=== PATIENT | female | born 1965 | race Two or more races ===

== ENCOUNTER 2023-12-11 11:06 | Inpatient (IN) | payer OTHER ==
[~2023-12-11] VITALS: Ht 167.6 cm; Wt 90.7 kg
[2023-12-11] MEDS ORDERED: XARELTO20 MG (11:35)
--- NOTE | 2023-12-11 11:37 | NUR ---
PACIENET ALERTA Y ORIENTADA X3. REFIERE VENIR POR REFERIDO DE DR. SARABIA PARA EVALUACION POR ULCERA EN PIERNA IZQUIERDA Y CELULITIS. PACIENTE CON VENDAJES LIMPIOS EN PIERNA IZQUIERDA.
[2023-12-11] MEDS ORDERED: 0.9 % SODIUM CHLORIDE 1,000 ML IV SCH ×2 (12:00→18:15)
[2023-12-11] MEDS ORDERED: MEPERIDINE HCL/PF 50 MG/ML VIAL IM PRN (12:00)
[2023-12-11] MEDS ORDERED: levoFLOXacin IN DEXTROSE 5 % 5 MG/ML PIGGYBAG IV ONE (12:00)
[2023-12-11] MEDS ORDERED: PROMETHAZINE HCL 25 MG/ML AMPUL IM PRN (12:00)
--- NOTE | 2023-12-11 13:10 | NUR ---
SE ORIENTA PTE SOBRE TX A SEGUIR,EL CUAL REFIERE ENTENDER. SE COLECTAN MUESTRAS Y SE CANALIZA PTE UTILIZANDO MEDIDAS ASEPTICAS. SE ADM. MEDICAMENTOS KORINA ORDEN MEDICA. PEND VENOUS DUPLEX.
[2023-12-11 13:45] LABS: HEMATOCRIT 41.7 % (36.0-45.00); HEMOGLOBIN 14.5 g/dL (12.0-15.00); MEAN CELL VOLUME 104.8 fL (80.00-100.00); MEAN CORPUSCULAR HEMOGLOBIN 36.5 pg (27.00-32.0); MEAN CORPUSCULAR HGB CONC 34.8 g/dl (32.0-36.0); PLATELET COUNT 355 K/uL (150-450); RED BLOOD COUNT 3.98 M/uL (4.00-6.00); RED CELL DISTRIBUTION WIDTH 16.3 % (11.5-14.5)
[2023-12-11 14:37] LABS: ALBUMIN 3.7 gm/dL (3.4-5.0); BILIRUBIN TOTAL 0.26 mg/dL (0.3-1.2); CALCIUM 9.9 mg/dL (8.5-10.1); CREATININE SERUM 0.6 mg/dL (0.55-1.02); GFR 101.97; GLOBULINA 4.9 G/DL (2.4-3.5); POTASSIUM 4.58 mEq/L (3.5-5.1); TOTAL PROTEIN 8.6 gm/dL (6.4-8.2)
[2023-12-11 14:49] LABS: C-REACTIVE PROTEIN 0.99 MG/DL (0.00-0.29)
[2023-12-11 14:57] LABS: D DIMER 0.35 MG/L; PARTIAL THROMBOPLASTIN TIME 28.8 SECONDS (22.0-34.0)
[2023-12-11 15:00] LABS: INR 0.99; PROTHROMBIN TIME 10.4 SECONDS (9.0-11.5)
[2023-12-11 15:05] LABS: ERYTHROCYTE SEDIMENTATION RATE 129 mm/hr
--- NOTE | 2023-12-11 15:37 | NUR ---
PTE ALERTA Y ORIENTADA X 3 ESFERAS EN CRIS CON BARANDAS ELEVADAS,SIN FAMILIAR AL MOMENTO DE LA D[place],AREA DE VENOPUNCION PATENTE Y AMANDA DE EDEMA,PENDIENTE A EVALUACION DE .
[2023-12-11] MEDS ORDERED: MORPHINE SULFATE 4 MG/ML CARTRIDGE IV ONE (17:15)
[2023-12-11] MEDS ORDERED: PIPERACILLIN/TAZOBACTAM SODIUM 3.375 GM in 0.9 % SODIUM CHLORIDE 100 ML IV SCH (18:19)
[2023-12-11] MEDS ORDERED: ONDANSETRON HCL 4 MG in 0.9 % SODIUM CHLORIDE 50 ML IV PRN (18:30)
[2023-12-11] MEDS ORDERED: ACETAMINOPHEN 500 MG GEL..CAP PO PRN (18:30)
[2023-12-11] MEDS ORDERED: MEPERIDINE HCL/PF 25 MG/ML VIAL IM PRN (18:30)
[2023-12-12] MEDS ORDERED: KETOROLAC TROMETHAMINE 30 MG VIAL IV PRN (01:30)
[2023-12-12 06:43] LABS: URINE APPEARANCE Error; URINE BILIRRUBIN Negative (NEGATIVE); URINE BLOOD Negative; URINE COLOR Yellow; URINE GLUCOSE Negative (NEGATIVE); URINE LEUKOCYTE Negative; URINE NITRATE Negative; URINE PROTEIN Trace (NEGATIVE); URINE UROBILINOGEN 0.2 E.U./dl
[2023-12-12 06:48] LABS: URINE BACTERIA 47.8 uL (0.0-1933); URINE EPITHELIAL CELLS 11.7 uL (0.0-38.8); URINE RBC 11.6 uL (0.0-20.8); URINE WBC 13.7 uL (0.0-23.2)
[2023-12-12] MEDS ORDERED: FAMOTIDINE/PF 20 MG in 0.9 % SODIUM CHLORIDE 8 ML IV PUSH SCH (09:00)
[2023-12-12] MEDS ORDERED: RIVAROXABAN 20 MG TABLET PO SCH (09:00)
[2023-12-12 09:41] LABS: URINE CRYSTALS FEW /HPF
[2023-12-12] MEDS ORDERED: GABAPENTIN 100 MG CAPSULE PO SCH (11:39)
[2023-12-12] MEDS ORDERED: VANCOMYCIN HCL 1,000 MG in 0.9 % SODIUM CHLORIDE 250 ML IV SCH (17:00)
[2023-12-13 06:34] LABS: HEMATOCRIT 33.2 % (36.0-45.00); MEAN CORPUSCULAR HGB CONC 34.5 g/dl (32.0-36.0); PLATELET COUNT 246 K/uL (150-450); RED CELL DISTRIBUTION WIDTH 16.7 % (11.5-14.5)
[2023-12-13 06:45] LABS: HEMOGLOBIN 11.4 g/dL (12.0-15.00); MEAN CELL VOLUME 103.8 fL (80.00-100.00); MEAN CORPUSCULAR HEMOGLOBIN 35.6 pg (27.00-32.0)
[2023-12-13 07:04] LABS: ALBUMIN 2.8 gm/dL (3.4-5.0); BILIRUBIN TOTAL 0.27 mg/dL (0.3-1.2); C-REACTIVE PROTEIN 1.46 MG/DL (0.00-0.29); CALCIUM 8.4 mg/dL (8.5-10.1); CREATININE SERUM 0.42 mg/dL (0.55-1.02); GFR 153.9; GLOBULINA 3.3 G/DL (2.4-3.5); POTASSIUM 4.24 mEq/L (3.5-5.1); TOTAL PROTEIN 6.1 gm/dL (6.4-8.2)
[2023-12-13] MEDS ORDERED: BENZONATATE 100 MG CAPSULE PO SCH (17:00)
[2023-12-13] MEDS ORDERED: CEFAZOLIN SODIUM 2,000 MG in 0.9 % SODIUM CHLORIDE 100 ML IV SCH (17:00)
[2023-12-13] MEDS ORDERED: FAMOTIDINE/PF 20 MG in 0.9 % SODIUM CHLORIDE 8 ML IV PUSH SCH (17:00)
[2023-12-13] MEDS ORDERED: MEPERIDINE HCL/PF 25 MG/ML VIAL IM PRN (20:00)
[2023-12-13] MEDS ORDERED: FLUTICASONE PROPIONATE 50 MCG SPRAY NASAL SCH (21:00)
[2023-12-13] MEDS ORDERED: LORATADINE 10 MG TABLET PO SCH (21:00)
[2023-12-16 07:30] LABS: HEMATOCRIT 34.9 % (36.0-45.00); HEMOGLOBIN 12.1 g/dL (12.0-15.00); MEAN CELL VOLUME 103.2 fL (80.00-100.00); MEAN CORPUSCULAR HEMOGLOBIN 35.8 pg (27.00-32.0); MEAN CORPUSCULAR HGB CONC 34.7 g/dl (32.0-36.0); PLATELET COUNT 225 K/uL (150-450); RED BLOOD COUNT 3.38 M/uL (4.00-6.00); RED CELL DISTRIBUTION WIDTH 15.6 % (11.5-14.5)
[2023-12-16 07:45] LABS: ALBUMIN 2.8 gm/dL (3.4-5.0); BILIRUBIN TOTAL 0.25 mg/dL (0.3-1.2); CALCIUM 8.7 mg/dL (8.5-10.1); CREATININE SERUM 0.41 mg/dL (0.55-1.02); GFR 158.24; GLOBULINA 3.3 G/DL (2.4-3.5); POTASSIUM 4.11 mEq/L (3.5-5.1); TOTAL PROTEIN 6.1 gm/dL (6.4-8.2)
[2023-12-16 07:48] LABS: ERYTHROCYTE SEDIMENTATION RATE 75 mm/hr
[2023-12-16] MEDS ORDERED: FAMOtidine 20 MG TABLET PO SCH (21:00)
== END 2023-12-20 22:00 | disposition home or self-care (01) | DRG 982 ==
LOC: ER 11:07 → MEDI 18:59
PROVIDERS: General Practice; Internal Medicine Infectious Disease; ADMIT Internal Medicine; ATTEND Internal Medicine
PROC: B54CZZZ Ultrasonography of Left Lower Extremity Veins (ICD-10-PCS; 2023-12-11)
PROC: 0JDP0ZZ Extraction of Left Lower Leg Subcutaneous Tissue and Fascia, Open Approach (ICD-10-PCS; principal; 2023-12-12)
PROC: 02HV33Z Insertion of Infusion Device into Superior Vena Cava, Percutaneous Approach (ICD-10-PCS; 2023-12-12)
PROC: 0JDP0ZZ Extraction of Left Lower Leg Subcutaneous Tissue and Fascia, Open Approach (ICD-10-PCS; 2023-12-18)
DX: I83.028 Varicose veins of left lower extremity with ulcer other part of lower leg (principal); L03.116 Cellulitis of left lower limb; L97.923 Non-pressure chronic ulcer of unspecified part of left lower leg with necrosis of muscle; B95.61 Methicillin susceptible Staphylococcus aureus infection as the cause of diseases classified elsewhere; L08.9 Local infection of the skin and subcutaneous tissue, unspecified; Z20.822 Contact with and (suspected) exposure to COVID-19; I73.9 Peripheral vascular disease, unspecified

== ENCOUNTER 2024-06-10 08:22 | Inpatient (IN) | payer OTHER ==
[~2024-06-10] VITALS: Ht 167.6 cm; Wt 92.1 kg
[~2024-06-10 08:22] MED LIST: XARELTO20 MG
[2024-06-10] MEDS ORDERED: DAFLONEX-XL 11300 MG PO (08:26)
[2024-06-10] MEDS ORDERED: VANCOMYCIN HCL 1,000 MG VIAL IV STA (09:35)
[2024-06-10] MEDS ORDERED: KETOROLAC TROMETHAMINE 60 MG VIAL IM STA (09:36)
[2024-06-10 11:13] LABS: HEMATOCRIT 42.7 % (36.0-45.00); HEMOGLOBIN 14.8 g/dL (12.0-15.00); MEAN CELL VOLUME 102.8 fL (80.00-100.00); MEAN CORPUSCULAR HEMOGLOBIN 35.8 pg (27.00-32.0); MEAN CORPUSCULAR HGB CONC 34.8 g/dl (32.0-36.0); PLATELET COUNT 369 K/uL (150-450); RED BLOOD COUNT 4.15 M/uL (4.00-6.00); RED CELL DISTRIBUTION WIDTH 16.1 % (11.5-14.5)
[2024-06-10 11:38] LABS: CALCIUM 10.4 mg/dL (8.5-10.1); CREATININE SERUM 0.58 mg/dL (0.55-1.02); GFR 106.04; POTASSIUM 4.07 mEq/L (3.5-5.1)
[2024-06-10] MEDS ORDERED: CEFTRIAXONE SODIUM 2,000 MG in 0.9 % SODIUM CHLORIDE 100 ML IV SCH (12:46)
[2024-06-10] MEDS ORDERED: FAMOTIDINE/PF 20 MG in 0.9 % SODIUM CHLORIDE 100 ML IV SCH (12:46)
[2024-06-10] MEDS ORDERED: RIVAROXABAN 10 MG TAB PO SCH (12:56)
[2024-06-10] MEDS ORDERED: CLINDAMYCIN PHOSPHATE 300 MG in 0.9 % SODIUM CHLORIDE 50 ML IV SCH (13:00)
[2024-06-10] MEDS ORDERED: 0.9 % SODIUM CHLORIDE 1,000 ML IV SCH (13:00)
[2024-06-10 14:13] LABS: URINE APPEARANCE Clear; URINE BILIRRUBIN Negative (NEGATIVE); URINE BLOOD Negative; URINE COLOR Yellow; URINE GLUCOSE Negative (NEGATIVE); URINE LEUKOCYTE Negative; URINE NITRATE Negative; URINE PROTEIN Negative (NEGATIVE); URINE UROBILINOGEN 0.2 E.U./dl
[2024-06-10 14:17] LABS: URINE BACTERIA 211.6 uL (0.0-1933); URINE EPITHELIAL CELLS 12.3 uL (0.0-38.8); URINE RBC 3.6 uL (0.0-20.8); URINE WBC 2.6 uL (0.0-23.2)
[2024-06-10 14:23] LABS: URINE KETONE 40 (NEGATIVE)
[2024-06-10] MEDS ORDERED: KETOROLAC TROMETHAMINE 30 MG VIAL IM PRN (14:30)
[2024-06-10 15:05] LABS: INR 1.09; PARTIAL THROMBOPLASTIN TIME 31.3 SECONDS (22.0-34.0); PROTHROMBIN TIME 11.8 SECONDS (9.0-11.5)
[2024-06-10 15:10] VITALS: BP 160/85; O2SAT 98
[2024-06-10] MEDS ORDERED: hydrALAZINE HCL 25 MG TABLET PO STA (16:57)
[2024-06-10] MEDS ORDERED: hydrALAZINE HCL 20 MG VIAL IV PRN (17:00)
[2024-06-10] MEDS ORDERED: hydrALAZINE HCL 25 MG TABLET PO SCH (17:00)
[2024-06-10 18:05] VITALS: BP 189/97; O2SAT 96
[2024-06-11 02:01] VITALS: BP 144/83; O2SAT 97
[2024-06-11 08:21] VITALS: BP 160/85
[2024-06-11] MEDS ORDERED: LOSARTAN POTASSIUM 25 MG TABLET PO NR (13:45)
[2024-06-11] MEDS ORDERED: LINEZOLID 600 MG TABLET PO SCH (17:00)
[2024-06-11 21:45] VITALS: BP 158/80
[2024-06-12 02:54] VITALS: BP 140/80
[2024-06-12] MEDS ORDERED: LOSARTAN POTASSIUM 25 MG TABLET PO SCH (09:00)
[2024-06-12 09:05] VITALS: BP 152/80
[2024-06-12] MEDS ORDERED: FAMOtidine 20 MG TABLET PO SCH (17:00)
[2024-06-12 17:42] VITALS: BP 150/67
[2024-06-13 00:30] VITALS: BP 150/90; O2SAT 96
[2024-06-13 07:30] LABS: ALBUMIN 3.2 gm/dL (3.4-5.0); BILIRUBIN TOTAL 0.26 mg/dL (0.3-1.2); CALCIUM 8.3 mg/dL (8.5-10.1); CREATININE SERUM 0.53 mg/dL (0.55-1.02); GFR 117.67; GLOBULINA 3.4 G/DL (2.4-3.5); POTASSIUM 4.51 mEq/L (3.5-5.1); TOTAL PROTEIN 6.6 gm/dL (6.4-8.2)
[2024-06-13 07:31] LABS: C-REACTIVE PROTEIN 0.77 MG/DL (0.00-0.29)
[2024-06-13 08:03] LABS: HEMATOCRIT 35.3 % (36.0-45.00); HEMOGLOBIN 12.3 g/dL (12.0-15.00); MEAN CELL VOLUME 103.3 fL (80.00-100.00); MEAN CORPUSCULAR HEMOGLOBIN 35.9 pg (27.00-32.0); MEAN CORPUSCULAR HGB CONC 34.7 g/dl (32.0-36.0); PLATELET COUNT 273 K/uL (150-450); RED BLOOD COUNT 3.42 M/uL (4.00-6.00)
[2024-06-13 08:14] LABS: ERYTHROCYTE SEDIMENTATION RATE 48 mm/hr
[2024-06-13 08:24] VITALS: BP 128/78
[2024-06-13 17:13] VITALS: BP 170/76
[2024-06-14 00:28] VITALS: BP 125/77; O2SAT 99
[2024-06-14 09:07] VITALS: BP 149/75
[2024-06-14 17:46] VITALS: BP 171/80
[2024-06-15 02:07] VITALS: BP 160/89; O2SAT 97
[2024-06-15 08:39] VITALS: BP 160/80
[2024-06-15] MEDS ORDERED: KETOROLAC TROMETHAMINE 30 MG VIAL IV STA (12:04)
[2024-06-16] MEDS ORDERED: LOSARTAN POTASSIUM 50 MG TABLET PO SCH (09:00)
== END 2024-06-15 15:44 | disposition home or self-care (01) | DRG 300 ==
LOC: ER 08:24 → SEC-K 13:39 → MEDJ 13:39
PROVIDERS: General Practice; Student in an Organized Health Care Education/Training Program; ADMIT Internal Medicine; ATTEND Internal Medicine
PROC: 02HV33Z Insertion of Infusion Device into Superior Vena Cava, Percutaneous Approach (ICD-10-PCS; principal; 2024-06-11)
PROC: 0JBP3ZZ Excision of Left Lower Leg Subcutaneous Tissue and Fascia, Percutaneous Approach (ICD-10-PCS; 2024-06-13)
DX: I83.023 Varicose veins of left lower extremity with ulcer of ankle (principal); L97.328 Non-pressure chronic ulcer of left ankle with other specified severity; I87.2 Venous insufficiency (chronic) (peripheral)